=== PATIENT | female | born 1960 | race Hispanic/Latino ===

== ENCOUNTER 2017-07-11 11:03 | Outpatient (CLI) | payer BC ==
--- NOTE | 2017-07-11 16:28 | Mammography Report ---
BILATERAL DIGITAL SCREENING MAMMOGRAM with CAD: 07/11/17 11:03:00 CLINICAL: Routine screening. COMPARISON: None available. FINDINGS: There are bilateral scattered areas of fibroglandular density.No mass, architectural distortion or suspicious calcifications. IMPRESSION: No mammographic evidence of malignancy. BI-RADS CATEGORY: 1 -- Negative RECOMMENDATION: Routine mammographic screening in one year. COMMENT: Patient follow-up letters are generated by our [employer] application.
--- NOTE | 2017-07-11 16:32 | Mammography Report ---
BONE DEXA:07/11/17 11:03:00 CLINICAL: Postmenopausal. No comparison. TECHNIQUE: Two site bone DEXA performed on an Hologic scanner. FINDINGS: The average BMD of the lumbar spine L1-L4 is 0.889g/cm squared with a T-score of -1.4 and a Z-score of 0.3. The average BMD of the left hip is 0.7-0g/cm squared with a T-score of -1.8 and a Z-score of -1.1. IMPRESSION: WHO classification: Osteopenia with increased fracture risk based on the spine and left hip measurements. RECOMMENDATION: Clinical correlation and routine screening. DEFINITIONS: BMD = Bone Mineral Density T-score = BMD related to mean peak bone mass of young adult (mean expressed in Standard Deviation) Z-score = Age matched BMD expressed in SD World Health Organization (WHO) Diagnostic Criteria Normal T-score > -1 SD Osteopenia T-score between -1 and -2.4 SD Osteoporosis T-score -2.5 SD or below NOTE: BMD is not the only risk factor for fracture. One should also consider factors such as the patient's age, risk of falling, previous osteoporotic fracture, family history of osteoporotic fractures, current smoker, and low body weight. Z-scores are not calculated if >80 years of age.
== END 2017-07-11 11:04 | disposition home or self-care (01) ==
LOC: SPVWC 11:03
PROVIDERS: ATTEND Family Medicine
DX: Z12.31 Encounter for screening mammogram for malignant neoplasm of breast (principal); M85.88 Other specified disorders of bone density and structure, other site; Z78.0 Asymptomatic menopausal state
CPT/HCPCS: 77067; 77080

== ENCOUNTER 2017-10-28 11:28 | Outpatient (CLI) | payer BC ==
--- NOTE | 2017-10-28 18:06 | Cat Scan Report ---
FINAL REPORT PROCEDURE: CT ABDOMEN W CON TECHNIQUE: Computerized axial tomography of the abdomen was performed after the IV injection of iodinated nonionic contrast. Delayed images. DLP 444.06 mGy-cm. HISTORY: Pancreatic mass. COMPARISON: No prior studies are available for comparison. FINDINGS: Visualized lower thorax: Mild atelectasis. Cardiomegaly. Minimal pericardial thickening. Mitral annular calcification. Liver: There are several areas of low attenuation throughout the liver. One of the larger ones in the left lobe of the liver measures 14 mm (image 43 series 5). One of the larger slightly lobulated ones in the right lobe of the liver measures 2 x 1.6 cm (image 65 series 5). One in the posterior right lobe of the liver measures 11 mm (image 110 series 5). Lesions appear similar and low attenuation on series. Spleen: Normal size and attenuation. Gallbladder and biliary system: Normal. Pancreas: Ill-defined 18 x 13 mm low-attenuation lesion with possible subtle septations in the head of the pancreas (image 105 series 5). Subtle area of low attenuation measuring 6.3 mm in the head/neck of the pancreas (image 114 series 5). These are low attenuation on all series, and there may be smaller surrounding areas of low attenuation. Adrenals: Normal. Kidneys: 7 mm low-attenuation right renal lesion. GI tract: Normal. Lymph nodes and mesentery: Normal. Vasculature: Moderate atherosclerosis. Slight medialization of the intimal calcification in the distal 3rd of the abdominal aorta. Peritoneum: No free fluid. Musculoskeletal structures: L4-5 and L5-S1 disc bulges. Slight L4-5 anterolisthesis. Mild osteopenia. Small multilevel osteophytes. Mild L4-5 and-S1 facet arthropathy. Other: Filled umbilical hernia. IMPRESSION: Ill-defined area of low attenuation in the head of the pancreas with possible subtle septations and another subtle area of low attenuation in the head/neck of the pancreas with possible smaller areas of low-attenuation. Consider pancreatic cyst and/or pseudocyst or cystic neoplasm, recommend MRI for further characterization if there is continued clinical concern and patient has no contraindication to MRI. Also recommend direct comparison with examination demonstrating pancreatic mass, this examination is not available for direct comparison at this time. Cardiomegaly. Minimal pericardial thickening. 7 mm low-attenuation right renal lesion. Low-attenuation lesions in the liver, likely cysts. These can also be further evaluated on MRI if there is continued clinical concern (and if patient has no contraindication to MRI). Low-attenuation right renal lesion, felt to likely represent renal cyst. Atherosclerosis. Slight medialization of the intimal calcification in the distal 3rd of the abdominal aorta, likely irregular atherosclerosis but consider subtle focal chronic dissection. Mild degenerative changes of the spine. Fat filled umbilical hernia.
== END 2017-10-28 11:29 | disposition home or self-care (01) ==
LOC: CT 11:28
PROVIDERS: ATTEND Family Medicine
DX: K86.9 Disease of pancreas, unspecified (principal); I51.7 Cardiomegaly; J98.11 Atelectasis; I70.90 Unspecified atherosclerosis; I70.0 Atherosclerosis of aorta; M12.88 Other specific arthropathies, not elsewhere classified, other specified site; M85.80 Other specified disorders of bone density and structure, unspecified site; F42.9 Obsessive-compulsive disorder, unspecified; M47.899 Other spondylosis, site unspecified
CPT/HCPCS: 74160; Q9967

== ENCOUNTER 2019-02-08 10:57 | Outpatient (CLI) | payer BC, MEDICARE ==
--- NOTE | 2019-02-08 15:49 | Ultrasound Report ---
Please see separately dictated report for bilateral diagnostic mammogram and right breast ultrasound for combined mammogram and ultrasound report. Signer Name: Lenore Pereyra MD Signed: 02/08/2019 3:45 PM Workstation Name: [id number]
--- NOTE | 2019-02-08 15:49 | Mammography Report ---
BILATERAL DIGITAL DIAGNOSTIC MAMMOGRAM WITH CAD 02/08/2019 RIGHT LIMITED BREAST ULTRASOUND INDICATION: Patient is complaining of right breast pain TECHNIQUE: Digital bilateral mammographic imaging was performed. Limited ultrasound was performed. T his examination was interpreted with the benefit of Computer-Aided Detection (CAD) analysis. COMPARISON: 07/11/2017 FINDINGS: Breast Density: There are scattered areas of fibroglandular density. There is no evidence of dominant mass, suspicious calcifications or architectural distortion in eithe r breast. No mammographic abnormality is seen to account for the complaint of breast pain. Overall th ere has been no interval change in the appearance of the mammogram. Ultrasound Findings: Targeted ultrasound evaluation was performed of the area of interest. There is a small hypoechoic mass with intense shadowing in the 12:00 position of the right breast, 4 cm from the nipple. This corresponds to a large coarse benign calcification noted mammographically. No additi onal masses or suspicious area of shadowing is noted. There is no abnormality to account for the foca l breast pain. IMPRESSION: Benign findings. No mammographic or sonographic abnormality is present to account for the patient's complaint of right breast pain. Please correlate clinically. BI-RADS Category 2: Benign. Recommend routine screening mammography in one year A "normal" or negative report should not discourage follow up or biopsy of a clinically significant f inding. A written summary of these findings will be mailed to the patient. The patient will be entered into a mammography reporting system which will generate a reminder letter for the patient's next appointmen t at the appropriate interval. FURTHER INFORMATION: According to the [employer], yearly mammograms are recommend ed starting at age 40 and continuing as long as a woman is in good health. Breast MRI is recommended for women with an approximately 20-25% or greater lifetime risk of breast cancer, including women wi th a strong family history of breast or ovarian cancer and women who have been treated for Hodgkin's disease. Signer Name: Lenore Pereyra MD Signed: 02/08/2019 3:44 PM Workstation Name: [id number]
== END 2019-02-08 10:58 | disposition home or self-care (01) ==
LOC: SPVWC 10:57
PROVIDERS: ATTEND Family Medicine
DX: N64.4 Mastodynia (principal)
CPT/HCPCS: 77066